=== PATIENT | female | born 1975 | race Caucasian/White ===

== ENCOUNTER 2017-11-03 04:29 | Inpatient (IN) ==
[2017-11-03] MEDS ORDERED: *HR* Oxytocin 10 UNIT/ML VIAL IM ONE (04:42)
--- NOTE | 2017-11-03 05:00 | OB/GYN History & Physical ---
Date of Encounter: 11/03/17 Time of Encounter: 04:59 Assessment and Plan (1) Precipitous delivery, delivered (current hospitalization) Current visit: No Status: Acute Patient presented to L&D and delivered. Pls see separate delivery note. History of Present Illness HPI: Ms. Stapleton is a 42 year old female @ 37+3 weeks who presented in labor to L&D and delivered shortly after presentation. Aside from AMA status with SGA fetus, course uncomplicated, GBS negative. Past Med Surg Social Fam HX - Past Medical History Medical history: no medical history Psychiatric history: no psych history - Past Surgical History Surgical History: other (D and C) Additional surgical history: d&c - Social History Smoking Status: Current every day smoker Alcohol use: none Drug use: none - Family History Mother Living Status: Still Living Hx Family Cardiac Disorders: Yes (hypertension) Hx Family Respiratory Disorders: No Hx Family Cancer: No Hx Family GI Disorders: No Hx Family Endocrine Disorder: Yes (diabetic) Hx Family Neuromuscular Disorders: No Hx Family Neurologic Disorders: No Hx Family HEENT Disorders: No Hx Family Autoimmune Disorders: No Obstetrical History - Pregnancies : 9 Para: 5 Medications and Allergies #79/Iron Asp Gly/FA#1 [Prenate Elite Tablet] 1 each PO 11/08/15 [ History] Docusate [Colace] 100 mg PO BID #60 capsule 11/10/15 [Rx] Ibuprofen [Motrin] 600 mg PO TID PRN #60 tablet 11/10/15 [Rx] 3 Allergy/AdvReac Type Severity Reaction Status Date / Time No Known Allergies Allergy Verified 11/08/15 08:10 Review of System OB All systems PM: reviewed and no additional remarkable complaints except as stated Exam - Constitutional Constitutional: well developed - HEENT HEENT: PERRL - Neck Neck exam: full ROM - Lungs Respiratory exam: CTAB - Cardiovascular Cardiovascular exam: RRR Results All other labs normal.
--- NOTE | 2017-11-03 05:12 | OB/GYN Procedure Note ---
Delivery - Delivery Date: 11/03/17 Provider: Ish Fuentes Intrapartum events: none Delivery induction: none Delivery monitor: none Anesthesia: none Quantitated Blood Loss: 75 - Repair Episiotomy: none Laceration Description: None - Complications Delivery complications: none - Disposition Mom disposition: stable in LDR disposition: stable in LDR - Comments Comments: 42 y/o now delivered a viable female @ 4:30AM. Infant weighed 6lbs 8oz(3095g), APGARs 9/10. Placenta delivered @ 4:43AM. EBL 75ml. No lacerations. Mother and stable. IM pitocin given.
[2017-11-03] MEDS ORDERED: Oxytocin 20 units/ LR 1000 mL 20 UNIT/1,000 ML BAG IVC SCH (06:36)
[2017-11-03] MEDS: Prenatal Vit/FA 1 EACH TABLET PO SCH (07:59)
[2017-11-03] MEDS: Ibuprofen 600 MG TABLET PO PRN ×2 (07:59→16:41)
[2017-11-03 17:00] LABS: Amphetamine Screen,Urine Negative ng/mL (Cutoff=1000); Barbiturate Screen,Urine Negative ng/mL (Cutoff=200); Benzodiazepines Screen,Urine Negative ng/mL (Cutoff=200); Cannabinoid Screen,Urine Positive ng/mL (Cutoff = 50); Cocaine Screen,Urine Negative ng/mL (Cutoff= 300); Opiate Screen,Urine Negative ng/mL (Cutoff=300); Phencyclidine Screen,Urine Negative ng/mL (Cutoff=25)
[2017-11-04 06:12] LABS: Basophils % 0.3 %; Eosinophils # 0.2 K/mcL (0.0-0.6); Eosinophils % 1.8 %; Hematocrit 37.3 % (35.3-44.9); Hemoglobin 12.1 g/dL (11.5-15.4); Immature Granulocytes % 1.2 % (0-4); Lymphocytes # 2.2 K/mcL (0.6-4.6); Lymphocytes % 20.3 %; Mean Corpuscular HGB Conc 32.4 g/dL (31.6-35.5); Mean Corpuscular Hemoglobin 30.5 pg (28.0-33.3); Mean Platelet Volume 11.9 fL (9.4-12.4); Monocytes % 9.1 %; Neutrophils # 7.4 K/mcL (1.6-8.9); Platelet Count 169 K/mcL (140-400); Red Blood Count 3.97 M/mcL (3.82-4.97); Red Cell Distribution Width 14.2 % (11.5-14.5); Segmented Neutrophils % 67.3 %
--- NOTE | 2017-11-04 06:48 | Discharge Summary ---
Date of Encounter: 11/04/17 Time of Encounter: 06:43 - Discharge Diagnosis (1) Vaginal delivery Priority: Primary Status: Acute Comments: Pt meeting all milestones. She is requesting discharge home today. - Discharge Medications Prescriptions: Ibuprofen [Motrin] 600 mg PO Q6HR PRN #30 tablet PRN Reason: Cramping Docusate [Colace] 100 mg PO BID #30 capsule Home Medications: #79/Iron Asp Gly/FA#1 [Prenate Elite Tablet] 1 each PO 11/08/15 [ History] Docusate [Colace] 100 mg PO BID #30 capsule 11/04/17 [Rx] Ibuprofen [Motrin] 600 mg PO Q6HR PRN #30 tablet 11/04/17 [Rx] Allergies/Adverse Reactions: 3 Allergy/AdvReac Type Severity Reaction Status Date / Time No Known Allergies Allergy Verified 11/08/15 08:10 Data Procedures and tests throughout hospitalization: Laboratory Tests 11/03/17 11/04/17 16:20 05:54 WBC 10.9 RBC 3.97 Hgb 12.1 Hct 37.3 MCV 94.0 MCH 30.5 MCHC 32.4 RDW 14.2 Plt Count 169 MPV 11.9 Immature Gran % 1.2 Seg Neutrophils % 67.3 Lymphocytes % 20.3 Monocytes % 9.1 Eosinophils % 1.8 Basophils % 0.3 Neutrophils # 7.4 Lymphocytes # 2.2 Monocytes # 1.0 Eosinophils # 0.2 Basophils # 0.0 Urine Opiates Screen Negative Ur Barbiturates Screen Negative Ur Phencyclidine Scrn Negative Ur Amphetamines Screen Negative U Benzodiazepines Scrn Negative Urine Cocaine Screen Negative U Marijuana (THC) Screen Positive H Labs on day of discharge: Labs from last 24 hours 11/04/17 11/03/17 05:54 16:20 WBC 10.9 RBC 3.97 Hgb 12.1 Hct 37.3 MCV 94.0 MCH 30.5 MCHC 32.4 RDW 14.2 Plt Count 169 MPV 11.9 Immature Gran % 1.2 Seg Neutrophils % 67.3 Lymphocytes % 20.3 Monocytes % 9.1 Eosinophils % 1.8 Basophils % 0.3 Neutrophils # 7.4 Lymphocytes # 2.2 Monocytes # 1.0 Eosinophils # 0.2 Basophils # 0.0 Urine Opiates Screen Negative Ur Barbiturates Screen Negative Ur Phencyclidine Scrn Negative Ur Amphetamines Screen Negative U Benzodiazepines Scrn Negative Urine Cocaine Screen Negative U Marijuana (THC) Screen Positive H Date of admission: 11/03/17 04:29 Consults: 11/03/17 06:36 Consult to [employer] [CONS] Routine Comment: Vaginal delivery, consult needed Discharging clinician: Mary Mcnair Anticipated date of discharge: 11/04/17 - Patient Status Disposition: Home, Self-Care Condition: Good Functional capacity at discharge: independent ambulation Overall status at discharge: patient is progressing back to baseline - Discharge Instructions Follow Up With: Ish Fuentes MD [Partnered Physician] - - Diet and Activity Activity: increase activity as tolerated Diet: regular diet Hospital Course Reason for admission: active labor Delivery: Episiotomy: none Laceration: none Other procedures: none complications: none Discharge diagnosis: IUP at term delivered [place] baby: female Hospital course: - Delivery Date: 11/03/17 Provider: Ish Fuentes Intrapartum events: none Delivery induction: none Delivery monitor: none Anesthesia: none Quantitated Blood Loss: 75 - Repair Episiotomy: none Laceration Description: None - Complications Delivery complications: none - Disposition Mom disposition: stable in LDR [place] disposition: stable in LDR - Comments Comments: 42 y/o now delivered a viable female infant @ 4:30AM. Infant weighed 6lbs 8oz(3095g), APGARs 9/10. Placenta delivered @ 4:43AM. EBL 75ml. No lacerations. Mother and infant stable. IM pitocin given. Time Attestation: Total time spent providing and/or coordinating discharge services: Exam - Constitutional Vitals: Temp Pulse Resp BP Pulse Ox 98.1 F 64 16 113/71 98 11/04/17 03:04 11/04/17 03:04 11/04/17 03:04 11/04/17 03:04 11/04/17 03:04 General appearance IM: A&O X 3 - Respiratory Respiratory exam: Present: CTAB (clears with coughing, pt does smoke) - Cardiovascular Cardiovascular exam IM: Present: RRR - GI/Abdominal GI/Abdominal exam IM: soft - Uterine Tone: Firm Uterus Position: 1 Finger Below Umbilicus - Extremities Exam Extremities exam IM: Present: normal inspection - Neurological Exam Neurological exam: normal gait, oriented X3 - Psychiatric Additional comments: reports good mood
[2017-11-04] MEDS: Ibuprofen 600 MG TABLET PO PRN (07:53)
[2017-11-04] MEDS: Prenatal Vit/FA 1 EACH TABLET PO SCH (07:53)
[2017-11-04 07:56] VITALS: BP 110/54
== END 2017-11-04 12:45 | disposition home or self-care (01) | DRG 560 ==
LOC: 1NENULAB 04:36 → 1NENUOBS 07:46
PROVIDERS: ADMIT Student in an Organized Health Care Education/Training Program; ATTEND Student in an Organized Health Care Education/Training Program